=== PATIENT | male | born 1975 | race Caucasian/White ===

== ENCOUNTER 2016-11-06 22:52 | Emergency (ER) | payer SELFPAY ==
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
--- NOTE | 2016-11-07 00:41 | ED ORDER SUMMARY ---
..... Patient: TL COREY OrderSheet [facility] VisitID: [id number] [place] [address] 41y, M Registration Date/Time: 11/06/2016 ORDER SHEET Weight: 74.8 kg (stated) Allergies: Penicillin GENERAL ORDERS: CBC w Diff Urgent (23:25 11/06/2016 Henry Hernandez) (Ack 23:27 Ramiro) (0:26 HSoule) CMP Urgent (23:11/06/2016 Henry Hernandez) (Ack 23:27 Codyuga) (0:26 HSoule) UA-Culture if indicated Urgent (:11/06/2016 Henry Hernandez) (Ack 23:27 RKaruga) Urine Drug Screen Urgent (23:11/06/2016 Henry Hernandez) (Ack 23:27 RKaruga) Ethyl Alcohol Urgent (23:11/06/2016 Henry Hernandez) (Ack 23:27 RKaruga) CT Thorax/Abd/Pelvis w Cont (No) (N/A) Urgent (23:49 11/06/2016 Henry Hernandez) (Ack 0:15 RKaruga) (0:27 HSoule) MEDICATION ORDERS: IV FLUIDS: IV Saline Lock (23:25 11/06/2016 Henry Hernandez) (Ack 23:30 JSanders R.N.) (23:43 HSoule) ORDER SHEET NOTES: [Electronically signed by Ronnie Melendez Dr. (00:45 11/07/2016)] [Electronically signed by Gabriela King (05:52 11/07/2016)] [Electronically locked/signed by Gabriela King (05:52 11/07/2016)]
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
--- NOTE | 2016-11-07 00:41 | ED ORDER SUMMARY ---
..... Patient: TL COREY OrderSheet [facility] VisitID: [id number] [place] [address] 41y, M Registration Date/Time: 11/06/2016 ORDER SHEET Weight: 74.8 kg (stated) Allergies: Penicillin GENERAL ORDERS: CBC w Diff Urgent (23:25 11/06/2016 Henry Hernandez) (Ack 23:27 Ramiro) (0:26 HSoule) CMP Urgent (23:11/06/2016 Henry Hernandez) (Ack 23:27 Codyuga) (0:26 HSoule) UA-Culture if indicated Urgent (:11/06/2016 Henry Hernandez) (Ack 23:27 RKaruga) Urine Drug Screen Urgent (23:11/06/2016 Henry Hernandez) (Ack 23:27 RKaruga) Ethyl Alcohol Urgent (23:11/06/2016 Henry Hernandez) (Ack 23:27 RKaruga) CT Thorax/Abd/Pelvis w Cont (No) (N/A) Urgent (23:49 11/06/2016 Henry Hernandez) (Ack 0:15 RKaruga) (0:27 HSoule) MEDICATION ORDERS: IV FLUIDS: IV Saline Lock (23:25 11/06/2016 Henry Hernandez) (Ack 23:30 JSanders R.N.) (23:43 HSoule) ORDER SHEET NOTES: [Electronically signed by Ronnie Melendez Dr. (00:45 11/07/2016)] [Electronically signed by Gabriela King (05:52 11/07/2016)] [Electronically locked/signed by Gabriela King (05:52 11/07/2016)]
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
--- NOTE | 2016-11-07 05:53 | ED MAR SUMMARY ---
..... Medication Administration Record [facility] [address] [place], [place] [id number] Patient: TL COREY Visit ID: [id number] 41y, M Weight: 74.8 kg Height/Length: 73 in BMI: 21.8 ALLERGIES: Penicillin
--- NOTE | 2016-11-07 05:53 | ED MED RECONCILIATION SUMMARY ---
Patient: TL COREY Medication Reconciliation Report [facility] VisitID: [id number] [address] [place] [address] 41y, M Registration Date/Time: 11/06/2016 Weight: 74.8 kg Height/Length: 73 in. BMI: 21.8 ALLERGIES: Penicillin The patient's Home Medications are listed below: NONE. The source(s) of the original Home Medication information: patient The following Medications were given to the patient in the Emergency Department: None. The following Medications were prescribed to the patient: Diclofenac 50 mg tablets: take 1 tablet orally every 8 hours as needed for pain or stiffness. Dispense thirty (30). No refill. -- Ronnie Melendez Dr.
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
--- NOTE | 2016-11-07 05:53 | ED MAR SUMMARY ---
..... Medication Administration Record [facility] [address] [place], [place] [id number] Patient: TL COREY Visit ID: [id number] 41y, M Weight: 74.8 kg Height/Length: 73 in BMI: 21.8 ALLERGIES: Penicillin
--- NOTE | 2016-11-07 05:53 | ED MED RECONCILIATION SUMMARY ---
Patient: TL COREY Medication Reconciliation Report [facility] VisitID: [id number] [address] [place] [address] 41y, M Registration Date/Time: 11/06/2016 Weight: 74.8 kg Height/Length: 73 in. BMI: 21.8 ALLERGIES: Penicillin The patient's Home Medications are listed below: NONE. The source(s) of the original Home Medication information: patient The following Medications were given to the patient in the Emergency Department: None. The following Medications were prescribed to the patient: Diclofenac 50 mg tablets: take 1 tablet orally every 8 hours as needed for pain or stiffness. Dispense thirty (30). No refill. -- Ronnie Melendez Dr.
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
== END 2016-11-07 00:45 | disposition home or self-care (01) ==
LOC: ED SRH 22:52
DX: S16.1XXA Strain of muscle, fascia and tendon at neck level, initial encounter (principal); S20.219A Contusion of unspecified front wall of thorax, initial encounter; S30.1XXA Contusion of abdominal wall, initial encounter; V47.5XXA Car driver injured in collision with fixed or stationary object in traffic accident, initial encounter; Y93.9 Activity, unspecified; Y99.9 Unspecified external cause status; Y92.9 Unspecified place or not applicable
CPT/HCPCS: 90100; 92010; 95059